=== PATIENT | female | born 1945 | race Caucasian/White ===

== ENCOUNTER 2020-08-01 11:49 | Emergency (ER) | payer MEDICARE, OTHER ==
[~2020-08-01] VITALS: Ht 165.1 cm; Wt 68.2 kg
[2020-08-01] MEDS ORDERED: LOTRIMIN ULTRA12 GM TOP (12:17)
[2020-08-01] MEDS ORDERED: DEXAMETHASONE SOD PHOS INJ 4 MG/ML VIAL ONE (12:24)
[2020-08-01] MEDS ORDERED: DEXAMETHASONE SOD PHOS INJ 4 MG/ML VIAL IM ONE (12:30)
== END 2020-08-01 12:26 | disposition home or self-care (01) ==
LOC: FSED 12:00
DX: R21 Rash and other nonspecific skin eruption (principal)
CPT/HCPCS: 96372; 99283; J1100

== ENCOUNTER 2020-11-15 10:57 | Emergency (ER) | payer MEDICARE ==
[~2020-11-15] VITALS: Ht 170.2 cm; Wt 67.6 kg
[~2020-11-15 10:57] MED LIST: LOTRIMIN ULTRA12 GM TOP
[2020-11-15] MEDS ORDERED: FLUCONAZOLE150 MG PO (11:21)
[2020-11-15] MEDS ORDERED: CEPHALEXIN250 MG PO (11:21)
[2020-11-15] MEDS ORDERED: DEXAMETHASONE SOD PHOS INJ 4 MG/ML VIAL IM ONE (11:30)
[2020-11-15] MEDS ORDERED: DEXAMETHASONE SOD PHOS INJ 4 MG/ML VIAL ONE (11:31)
== END 2020-11-15 11:40 | disposition home or self-care (01) ==
LOC: FSED 11:20
DX: L01.00 Impetigo, unspecified (principal); B36.9 Superficial mycosis, unspecified
CPT/HCPCS: 99282; J1100